=== PATIENT | female | born 1950 | race Caucasian/White ===

== ENCOUNTER 2017-02-03 04:32 | Emergency (ER) | payer MEDICARE, OTHER ==
[2017-02-03 04:48] VITALS: BP 131/81
[2017-02-03] MEDS ORDERED: Doxycycline 100 MG Cap PO ONE (05:12)
--- NOTE | 2017-02-03 05:18 | EDM.PDOC ---
ED HPI GENERAL MEDICAL PROBLEM - General Chief Complaint: Lower Extremity Injury/Pain Stated Complaint: FOOT SORES Time Seen by Provider: 02/03/17 04:48 Source of Information: Reports: Patient, Family, RN Notes Reviewed ( ) - History of Present Illness INITIAL COMMENTS - FREE TEXT/NARRATIVE: 66-year-old lady comes in with worsening pain and swelling of the right foot and medial ankle. She does have an ulcer of the right medial ankle but she is had for several weeks or more. She's been under the care of Dr. 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 she was started on Bactrim type medication about 4 days ago. She states the erythema and swelling surrounding the ulcer has gotten worse over the last day or 2 and also having more pain. Right Feet Pain Score (Numeric/FACES): 10 - Related Data Allergies Allergy/AdvReac Type Severity Reaction Status Date / Time codeine Allergy Cannot Verified 02/03/17 04:48 Remember morphine Allergy Cannot Verified 02/03/17 04:48 Remember Home Meds: Home Meds ALPRAZolam [Xanax] 0.25 mg PO QID 04/30/14 [History] Cyclobenzaprine [Flexeril] 10 mg PO TID PRN #20 tab 04/30/14 [Rx] Enalapril Maleate [Vasotec] 20 mg PO DAILY 04/30/14 [History] Gabapentin [Neurontin] 200 mg PO TID 04/30/14 [History] Meloxicam [Mobic] 7.5 mg PO DAILY 04/30/14 [History] Methocarbamol [Robaxin] 500 mg PO TID 04/30/14 [History] Mirtazapine 45 mg PO BEDTIME 04/30/14 [History] Pantoprazole Sodium 40 mg PO DAILY 04/30/14 [History] Propranolol [Inderal] 20 mg PO TID 04/30/14 [History] Simvastatin [Zocor] 10 mg PO DAILY 04/30/14 [History] busPIRone [Buspar] 10 mg PO TID 04/30/14 [History] oxyCODONE HCl/Acetaminophen [Percocet 5-325 mg Tablet] 1 - 2 tab PO Q6H PRN #20 tablet 04/30/14 [Rx] oxyCODONE HCl/Acetaminophen [Percocet 5-325 mg Tablet] 1 - 2 tab PO Q6H PRN #5 tablet 04/30/14 [Rx] Doxycycline [Vibramycin] 100 mg PO Q12HR #20 tablet 02/03/17 [Rx] Sulfamethoxazole/Trimethoprim [Bactrim 400-80 MG] 1 tab PO ASDIRECTED 02/03/17 [ History] Past Medical History Cardiovascular History: Reports: Hypertension Gastrointestinal History: Reports: GERD Musculoskeletal History: Reports: Arthritis - Past Surgical History HEENT Surgical History: Reports: Tonsillectomy GI Surgical History: Reports: Cholecystectomy Female Surgical History: Reports: Hysterectomy Musculoskeletal Surgical History: Reports: Other (See Below) Other Musculoskeletal Surgeries/Procedures:: foot surgery, back surgery x2 Social & Family History - Tobacco Use Smoking Status *Q: Current Every Day Smoker Years of Tobacco use: 45 Packs/Tins Daily: 0.5 - Caffeine Use Caffeine Use: Reports: Coffee - Alcohol Use Days Per Week of Alcohol Use: 2 Number of Drinks Per Day: 2 Total Drinks Per Week: 4 - Recreational Drug Use Recreational Drug Use: No Review of Systems - Review of Systems Review Of Systems: See Below Constitutional: Denies: Chills, Fever Mouth/Throat: Reports: No Symptoms Respiratory: Reports: Shortness of Breath (Chronically), Cough. Denies: Sputum (Chronic) Cardiovascular: Denies: Chest Pain GI/Abdominal: Denies: Abdominal Pain, Nausea, Vomiting Musculoskeletal: Reports: Foot Pain, Joint Pain (Right ankle) Skin: Reports: Erythema (Surrounding ulcer right medial ankle), Wound (Chronic ulcer right medial ankle) Neurological: Denies: Numbness, Tingling ED EXAM, GENERAL - Physical Exam Exam: See Below General Appearance: Alert, No Apparent Distress Throat/Mouth: Normal Inspection Head: Atraumatic. No: Facial Swelling Neck: Supple Respiratory/Chest: Lungs Clear, Normal Breath Sounds Cardiovascular: Regular Rate, Rhythm Extremities: Other (There is an ulcer of the medial right ankle, no current drainage, there are his surrounding swelling and erythema, there is erythema of the toes of both feet, both feet are warm, no other open lesions). No: Leg Pain Neurological: Alert, Oriented, No Motor/Sensory Deficits Course - Vital Signs Last Recorded V/S: Last Vital Signs Temp 97 F 02/03/17 04:38 Pulse 65 02/03/17 04:38 Resp 16 02/03/17 04:38 BP 131/81 02/03/17 04:38 Pulse Ox 95 02/03/17 04:38 - Orders/Labs/Meds Meds: Medications Discontinued Medications Generic Name Dose Route Start Last Admin Trade Name Fatuma PRN Reason Stop Dose Admin Doxycycline Hyclate 100 mg 02/03/17 05:12 02/03/17 05:23 Vibramycin PO 02/03/17 05:13 100 mg ONETIME ONE Administration - Re-Assessments/Exams Free Text/Narrative Re-Assessment/Exam: 02/03/17 06:31 I'm going to add doxycycline to her antibiotic therapy, discharge instructions as documented Departure - Departure Time of Disposition: 05:30 Disposition: Home, Self-Care 01 Condition: Fair Clinical Impression: Cellulitis Qualifiers: Site of cellulitis of extremity: lower extremity Laterality: right - Discharge Information Prescriptions: Doxycycline [Vibramycin] 100 mg PO Q12HR #20 tablet Instructions: Cellulitis, Adult Forms: ED Department Discharge Additional Instructions: Continue Bactrim antibiotic previously prescribed, start doxycycline 100 mg twice daily, continue oxycodone 3-4 times daily as needed for severe pain, you may take Tylenol in between doses for extra pain relief, see Dr Bhardwaj this next , call for appointment. Continue therapy as previously recommended.
== END 2017-02-03 05:25 | disposition home or self-care (01) ==
LOC: JD.ED 04:32
DX: L03.115 Cellulitis of right lower limb (principal); I10 Essential (primary) hypertension; F17.210 Nicotine dependence, cigarettes, uncomplicated; Z88.5 Allergy status to narcotic agent; Z79.899 Other long term (current) drug therapy
CPT/HCPCS: 99282; A9270; 99283

== ENCOUNTER 2017-04-15 16:13 | Emergency (ER) | payer MEDICARE, OTHER ==
--- NOTE | 2017-04-15 16:36 | EDM.PDOC ---
ED HPI GENERAL MEDICAL PROBLEM - General Chief Complaint: Gastrointestinal Problem Stated Complaint: SENT FROM [facility] Time Seen by Provider: 04/15/17 16:36 Source of Information: Reports: Patient - History of Present Illness INITIAL COMMENTS - FREE TEXT/NARRATIVE: Patient was sent here today from [facility] where she had presented with diarrhea. Patient states that her diarrhea has been going on for 1.5 days, she denies any associated nausea/vomiting. Patient denies any melena or hematochezia. Patient states that she has had no abdominal pain whatsoever, she reports some rectal pain due to the diarrhea. She states that she feels a bit fatigued, states that she was a bit confused when she was at the clinic but states that she did get some fluids at that time (500mL NS per nurse report). She states that she does feel that hungry, but she did previously have several crackers and this made her diet area and suddenly worse. Patient denies any recent travel, has not eaten anywhere different, denies any CONTACTS. Patient has not been on any antibiotics recently. - Related Data Allergies Allergy/AdvReac Type Severity Reaction Status Date / Time codeine Allergy Cannot Verified 02/03/17 04:48 Remember morphine Allergy Cannot Verified 02/03/17 04:48 Remember Home Meds: Home Meds ALPRAZolam [Xanax] 0.25 mg PO QID 04/30/14 [History] Enalapril Maleate [Vasotec] 20 mg PO DAILY 04/30/14 [History] Gabapentin [Neurontin] 200 mg PO TID 04/30/14 [History] Methocarbamol [Robaxin] 500 mg PO TID 04/30/14 [History] Mirtazapine 45 mg PO BEDTIME 04/30/14 [History] Pantoprazole Sodium 40 mg PO DAILY 04/30/14 [History] Propranolol [Inderal] 20 mg PO TID 04/30/14 [History] Simvastatin [Zocor] 10 mg PO DAILY 04/30/14 [History] Cyanocobalamin/Folic Acid [Vitamin J16-Qtrce Acid] 1,200 mg PO DAILY 04/15/17 [ History] Past Medical History Cardiovascular History: Reports: Hypertension Gastrointestinal History: Reports: GERD Musculoskeletal History: Reports: Arthritis - Past Surgical History HEENT Surgical History: Reports: Tonsillectomy GI Surgical History: Reports: Cholecystectomy Female Surgical History: Reports: Hysterectomy Musculoskeletal Surgical History: Reports: Other (See Below) Other Musculoskeletal Surgeries/Procedures:: foot surgery, back surgery x2 Social & Family History - Tobacco Use Smoking Status *Q: Current Every Day Smoker Years of Tobacco use: 45 Packs/Tins Daily: 0.5 - Caffeine Use Caffeine Use: Reports: Coffee - Alcohol Use Days Per Week of Alcohol Use: 2 Number of Drinks Per Day: 2 Total Drinks Per Week: 4 - Recreational Drug Use Recreational Drug Use: No ED ROS GENERAL - Review of Systems Review Of Systems: See Below Constitutional: Reports: Weakness, Fatigue, Decreased Appetite. Denies: Fever, Chills HEENT: Reports: No Symptoms Respiratory: Reports: No Symptoms Cardiovascular: Reports: No Symptoms GI/Abdominal: Reports: Diarrhea. Denies: Abdominal Pain, Constipation, Decreased Appetite, Hematochezia, Melena, Nausea, Vomiting : Reports: No Symptoms Musculoskeletal: Reports: No Symptoms Skin: Reports: No Symptoms Neurological: Reports: No Symptoms ED EXAM, GI/ABD - Physical Exam Exam: See Below Exam Limited By: No Limitations General Appearance: Alert, WD/WN, No Apparent Distress Throat/Mouth: Normal Inspection, Normal Oropharynx Head: Atraumatic, Normocephalic Neck: Normal Inspection, Supple, Non-Tender Respiratory/Chest: No Respiratory Distress, Lungs Clear, Normal Breath Sounds Cardiovascular: Normal Peripheral Pulses, Regular Rate, Rhythm (History of A-fib , regular today.), No Murmur GI/Abdominal Exam: Soft, Non-Tender, Other (Hyperactive bowel sounds) Neurological: Alert, Oriented, No Motor/Sensory Deficits Psychiatric: Normal Affect, Normal Mood Skin Exam: Warm, Dry, Intact EKG INTERPRETATION EKG Date: 04/15/17 Time: 18:42 Rhythm: NSR EKG Interpretation Comments: Reviewed with Dr Chery Course - Vital Signs Last Recorded V/S: Last Vital Signs Temp 97.9 F 04/15/17 16:33 Pulse 103 H 04/15/17 18:35 Resp 18 04/15/17 18:35 BP 158/92 H 04/15/17 18:35 Pulse Ox 95 04/15/17 18:35 - Orders/Labs/Meds Orders: Active Orders 24 hr Category Date Time Status EKG 12 Lead [EKG Documentation Completion] [RC] STAT Care 04/15/17 18:37 Active CULTURE STOOL + SHIGATOX [RM] Stat Lab 04/15/17 16:55 Received Labs: Laboratory Tests 04/15/17 04/15/17 04/15/17 Range/Units 16:55 17:38 17:38 WBC 9.59 (3.98-10.04) K/mm3 RBC 3.65 L (3.98-5.22) M/mm3 Hgb 11.7 (11.2-15.7) gm/L Hct 36.1 (34.1-44.9) % MCV 98.9 H (79.4-94.8) fl MCH 32.1 (25.6-32.2) pg MCHC 32.4 (32.2-35.5) g/dl RDW Std Deviation 49.3 H (36.4-46.3) fL Plt Count 257 (182-369) K/mm3 MPV 10.5 (9.4-12.3) fl Neutrophils % (Manual) 82 H (40-60) % Band Neutrophils % 0 (0-10) % Lymphocytes % (Manual) 10 L (20-40) % Atypical Lymphs % 0 % Monocytes % (Manual) 8 (2-10) % Eosinophils % (Manual) 0 L (0.7-5.8) % Basophils % (Manual) 0 L (0.1-1.2) Platelet Estimate Adequate Plt Morphology Comment Normal RBC Morph Comment Normal Sodium 136 (136-145) mEq/L Potassium 5.9 H (3.5-5.1) mEq/L Chloride 105 (98-107) mEq/L Carbon Dioxide 24 (21-32) mEq/L Anion Gap 12.9 (5-15) BUN 28 H (7-18) mg/dL Creatinine 1.4 H (0.55-1.02) mg/dL Est Cr Clr Drug Dosing 28.01 mL/min Estimated GFR (MDRD) 38 (>60) mL/min BUN/Creatinine Ratio 20.0 H (14-18) Glucose 110 (80-115) mg/dL Calcium 9.0 (8.5-10.1) mg/dL C.difficile [id number] Presumptive negative C. difficile Tox (PCR) Negative Meds: Medications Discontinued Medications Generic Name Dose Route Start Last Admin Trade Name Freq PRN Reason Stop Dose Admin Sodium Chloride 1,000 mls @ 999 mls/hr 04/15/17 17:07 04/15/17 17:30 Normal Saline IV 04/15/17 18:07 999 mls/hr ONETIME ONE Administration Sodium Polystyrene Sulfonate 15 gm 04/15/17 18:37 04/15/17 18:50 Kayexalate PO 04/15/17 18:38 15 gm ONETIME ONE Administration - Re-Assessments/Exams Free Text/Narrative Re-Assessment/Exam: Patient feels significantly better after 1 L of fluids. I suspect her diarrhea is a result from viral gastroenteritis. WBC 9590 with 82 % neutrophils and 0 bands. On repeat BMP her renal function did improve somewhat her creatinine from 1.5- 1.4 and her GFR from 38-35, BUN stayed 28. However, potassium did increase to 5.9 from 5.4. With her diarrhea I would've expected this to go down, however question if it increased due to renal function. Discussed with Dr Chery and patient was given Kayexalate 15 g. EKG was performed and demonstrated normal sinus rhythm at a rate of 54. She is tolerating oral fluids well, will discharge her home and recommend that she avoid eating tonight if she can and maximize oral fluids. She may advance tomorrow with bland diet. She has not been taking her meloxicam and I recommend that she continue off of this. She needs to follow-up with her PCP tomorrow to have her BMP rechecked, specifically renal function and potassium. 04/15/17 19:09 04/15/17 19:11 04/15/17 19:15 04/15/17 19:16 Departure - Departure Time of Disposition: 19:13 Disposition: Home, Self-Care 01 Condition: Good Clinical Impression: ABEL (acute kidney injury), Dehydration, Hyperkalemia Diarrhea Qualifiers: Diarrhea type: unspecified type Qualified Code(s): R19.7 - Diarrhea, unspecified - Discharge Information Referrals: Masha Marcum NP [Primary Care Provider] - Forms: ED Department Discharge Additional Instructions: Mostly liquid diet for now, as you feel better you may advance to a bland diet. No sugar/spicy/dairy foods. Maximize your oral fluid intake. You need to follow-up with your PCP tomorrow to have your creatinine/kidney function and potassium level rechecked. You may certainly return to the emergency room if this is not possible or any worsening of her symptoms. - My Orders Last 24 Hours: My Active Orders 04/15/17 16:55 CULTURE STOOL + SHIGATOX [RM] Stat 04/15/17 18:37 EKG 12 Lead [EKG Documentation Completion] [RC] STAT - Assessment/Plan Last 24 Hours: My Active Orders 04/15/17 16:55 CULTURE STOOL + SHIGATOX [RM] Stat 04/15/17 18:37 EKG 12 Lead [EKG Documentation Completion] [RC] STAT
[2017-04-15] MEDS ORDERED: Sodium Chloride 0.9% 1,000 ML IV ONE (17:07)
[2017-04-15] MEDS ORDERED: Sodium Polystyrene Sulfonate 15 GM/60 ML Susp 60 ML Bot PO ONE (18:37)
[2017-04-15 18:46] VITALS: BP 158/92
== END 2017-04-15 19:24 | disposition home or self-care (01) ==
LOC: JD.ED 16:13
DX: N17.9 Acute kidney failure, unspecified (principal); E86.0 Dehydration; R19.7 Diarrhea, unspecified; E87.5 Hyperkalemia; I10 Essential (primary) hypertension; K21.9 Gastro-esophageal reflux disease without esophagitis; F17.210 Nicotine dependence, cigarettes, uncomplicated; Z88.5 Allergy status to narcotic agent; Z79.899 Other long term (current) drug therapy
CPT/HCPCS: 36415; 80048; 85025; 87046; 87338; 87493; 89055; 93005; 96360; 99284; A9270; J7040; 87427; 93010